=== PATIENT | male | born 1955 | race Two or more races ===

== ENCOUNTER 2018-12-25 21:02 | Emergency (ER) | payer BC, MEDICAID ==
[~2018-12-25] VITALS: Ht 185.4 cm; Wt 90.7 kg
[2018-12-25] MEDS ORDERED: IV NORMAL SALINE 500 ML BAG IV ONE (21:45)
[2018-12-25 22:02] LABS: BASOPHILS % (AUTO) 0.5 % (0.0-2.0); EOSINOPHILS # (AUTO) 0.1 K/uL (0.0-0.7); EOSINOPHILS % (AUTO) 1.6 % (0.0-7.0); HEMATOCRIT 42.1 % (36.7-47.1); LYMPHOCYTES # (AUTO) 0.6 K/uL (20.0-40.0); LYMPHOCYTES % (AUTO) 9.7 % (20.5-51.5); MEAN CORPUSCULAR HGB CONC 31 g/dL (32.5-36.3); MEAN CORPUSCULAR VOLUME 90.5 fL (73.0-96.2); MONOCYTES # (AUTO) 0.5 K/uL (2.0-10.0); NEUTROPHILS # (AUTO) 4.8 K/uL (1.8-8.9); NEUTROPHILS % (AUTO) 79.2 % (38.5-71.5); PLATELET COUNT (AUTO) 122 K/uL (152-348); RED BLOOD CELL COUNT(AUTO) 4.65 MIL/uL (4.06-5.63); WHITE BLOOD COUNT (AUTO) 6.1 K/uL (3.6-10.2)
[2018-12-25 22:09] LABS: CREATININE 1.3 mg/dL (0.6-1.3); POTASSIUM 4.1 mmol/L (3.5-5.1)
[2018-12-25 22:25] LABS: BILIRUBIN,DIRECT 0.5 mg/dL (0.0-0.2); BILIRUBIN,TOTAL 1.2 mg/dL (0.2-1.0); TOTAL PROTEIN, SERUM 8.1 g/dL (6.4-8.2)
[2018-12-25] MEDS ORDERED: FUROSEMIDE 40 MG/4 ML VIAL ONE (23:15)
[2018-12-25] MEDS ORDERED: FUROSEMIDE 20 MG/2 ML VIAL IV ONE (23:15)
[2018-12-25] MEDS ORDERED: GABA-532 PO (23:27)
[2018-12-25] MEDS ORDERED: ATROPINE SULFATE SL (23:27)
[2018-12-25] MEDS ORDERED: IPRA3AMP23 IH (23:27)
[2018-12-25] MEDS ORDERED: TEMA7.5C PO (23:27)
[2018-12-25] MEDS ORDERED: PROT946L PO (23:27)
[2018-12-25] MEDS ORDERED: PROC25SU3 RC (23:27)
[2018-12-25] MEDS ORDERED: ACET650S13 RC ×2 (23:27)
[2018-12-25] MEDS ORDERED: ASPI-1101 PO (23:27)
[2018-12-25] MEDS ORDERED: DILT120T8 PO (23:27)
[2018-12-25] MEDS ORDERED: BISA10SU8 RC (23:27)
[2018-12-25] MEDS ORDERED: CLON0.1T PO (23:27)
[2018-12-25] MEDS ORDERED: TAMS-3 PO (23:27)
[2018-12-25] MEDS ORDERED: MULT-213 PO (23:27)
[2018-12-25] MEDS ORDERED: TRAM50TA2 PO (23:27)
[2018-12-25] MEDS ORDERED: FURO-152 PO (23:27)
[2018-12-25] MEDS ORDERED: OMEP20TA5 PO (23:27)
[2018-12-25] MEDS ORDERED: ASCO500T10 PO (23:27)
[2018-12-25] MEDS ORDERED: ZINC220C8 PO (23:27)
--- NOTE | 2018-12-25 23:55 | NUR ---
SAVI FROM [facility] GAVE TRANSFER INFO. PATIENT WILL BE GOING TO [facility] ROOM [address] . ACCEPTING MD IS DR SALAZAR
--- NOTE | 2018-12-26 00:33 | NUR ---
DECEMBER FROM [facility] CALLED BACK AND GAVE AUTH FOR AMBULANCE TRANSFER TO [facility] ( [facility] #[id number])
--- NOTE | 2018-12-26 00:37 | NUR ---
CALLED [employer] IS 30MINS. TRIP #[id number]
--- NOTE | 2018-12-26 00:45 | NUR ---
GAVE SBAR REPORT TO LADAN PASTOR FROM [facility]
--- NOTE | 2018-12-26 01:23 | NUR ---
GAVE SBAR REPORT TO [facility] UN[facility] #[id number]
== END 2018-12-26 01:50 | disposition short-term general hospital (02) ==
LOC: ER 21:08
DX: I50.9 Heart failure, unspecified (principal); J90 Pleural effusion, not elsewhere classified; J44.9 Chronic obstructive pulmonary disease, unspecified
CPT/HCPCS: 36415; 71045; 80048; 80076; 83605; 83880; 84484; 85025; 85730; 87040; 93005; 96374; 99285; J1940; 70030-TC; A4663; J7040